=== PATIENT | female | born 1940 | race Caucasian/White ===

== ENCOUNTER 2017-10-12 16:28 | Inpatient (IN) | payer OTHER ==
[~2017-10-12] VITALS: Ht 162.6 cm; Wt 75.3 kg
[2017-10-12 18:10] LABS: Mean Corpuscular HGB 28.2 pg (26.0-34.0); Mean Corpuscular HGB Conc 31.2 g/dL (31.5-36.5); Mean Corpuscular Volume 90 fL (80-100); RDW Coefficient Variation 21.3 % (11.7-14.2); RDW Standard Deviation 70.3 fL (35.1-46.3); Red Blood Cell Count 1.56 M/mm3 (3.80-5.20); White Blood Cell Count 1.26 K/mm3 (4.00-11.30)
[2017-10-12 18:15] LABS: Hematocrit 14.1 % (33.0-51.0); Hemoglobin 4.4 g/dL (11.5-16.0); Platelet Count 13 K/mm3 (150-400)
[2017-10-12 18:23] LABS: CPK Creatine Kinase 79 U/L (26-193); Creatine Kinase MB 0.8 ng/mL (0.0-3.6); Lactate Dehydrogenase (Ld),Bld 319 U/L (100-240); Troponin I <0.015 ng/mL (0.000-0.040)
[2017-10-12 18:43] LABS: Uric Acid, Blood 41.8 mg/dL (2.6-6.0)
[2017-10-12 19:00] LABS: BASOPHILS PERCENT MAN 0 % (0-2); EOSINOPHILS PERCENT MAN 0 % (0-6); LYMPHOCYTES ABSOLUTE MAN 0.83 K/mm3 (0.84-5.20); LYMPHOCYTES PERCENT MAN 66 % (21-46); MONOCYTES ABSOLUTE MAN 0.03 K/mm3 (0.16-1.47); MONOCYTES PERCENT MAN 3 % (4-13); NEUTROPHILS ABSOLUTE MAN 0.39 K/mm3 (1.96-9.15); SEG NEUTROPHILS PERCENT MAN 31 % (41-73); TOTAL CELLS COUNTED 100
[2017-10-12 19:44] LABS: International Normalized Ratio 1.08; Prothrombin Time Results 11.3 Sec (9.7-11.5)
[2017-10-13 02:06] LABS: Bun/Creatinine Ratio 19.2 (12.0-20.0); Calcium, Blood 6.3 mg/dL (8.5-10.1); Creatinine, Blood 6.83 mg/dL (0.40-1.00); Potassium, Blood 5.9 mmol/L (3.5-5.5)
[2017-10-13 08:10] LABS: Chloride (POC) 103 mmol/L (98-108); Creatinine (POC) 8.1 mg/dL (0.6-1.0); Glucose (ISTAT POC) 107 mg/dL (70-99); Hematocrit (POC) < 15.0 % (36.0-46.0); Potassium (POC) 6.1 mmol/L (3.5-5.5); Sodium (POC) 132 mmol/L (135-148); Total CO2 (POC) 14 mmol/L (21-32)
== END 2017-10-13 01:25 | disposition short-term general hospital (02) | DRG 683 ==
LOC: ER 16:28 → PCU 20:29
PROVIDERS: Emergency Medicine; Hospitalist
PROC: 30233N1 Transfusion of Nonautologous Red Blood Cells into Peripheral Vein, Percutaneous Approach (ICD-10-PCS; principal; 2017-10-11)
DX: E88.3 Tumor lysis syndrome (principal); C91.10 Chronic lymphocytic leukemia of B-cell type not having achieved remission; Z66 Do not resuscitate; D63.0 Anemia in neoplastic disease; D70.1 Agranulocytosis secondary to cancer chemotherapy; E87.5 Hyperkalemia; E79.0 Hyperuricemia without signs of inflammatory arthritis and tophaceous disease
CPT/HCPCS: 36430; 51702; 80047; 80048; 82272; 82550; 82553; 83615; 84484; 84550; 85014; 85025; 85610; 85730; 86850; 86900; 86901; 86923; 93005; 93010; 96361; 96374; 96375; 96376; 99285; C9113; J0610; J1815; J1940; J2405; J3010; J7030; J7042; P9016

== ENCOUNTER 2020-11-14 10:13 | Emergency (ER) | payer OTHER ==
[~2020-11-14] VITALS: Ht 162.6 cm; Wt 61.2 kg
[2020-11-14 10:43] LABS: Hematocrit 24.5 % (33.0-51.0); Hemoglobin 7.3 g/dL (11.5-16.0); Mean Corpuscular HGB 28.2 pg (26.0-34.0); Mean Corpuscular HGB Conc 29.8 g/dL (31.5-36.5); Mean Corpuscular Volume 95 fL (80-100); Mean Platelet Volume 12.2 fL (9.1-12.4); NRBC ABSOLUTE 0.05 K/mm3 (0.00-0.02); Platelet Count 56 K/mm3 (150-400); RDW Coefficient Variation 18.7 % (11.7-14.2); RDW Standard Deviation 62.6 fL (35.1-46.3); Red Blood Cell Count 2.59 M/mm3 (3.80-5.20)
[2020-11-14 10:59] LABS: White Blood Cell Count 100.45 K/mm3 (4.00-11.30)
[2020-11-14 11:04] LABS: Albumin/Globulin Ratio 0.7 (0.8-1.8); Bilirubin, Total 1.2 mg/dL (0.1-1.0); Bun/Creatinine Ratio 18.5 (12.0-20.0); Calcium, Blood 8.3 mg/dL (8.5-10.1); Creatinine, Blood 1.24 mg/dL (0.40-1.00); Globulin, Blood 4.3 g/dL (2.2-4.0); Potassium, Blood 5.2 mmol/L (3.5-5.5); Total Protein, Blood 7.3 g/dL (6.4-8.2)
[2020-11-14 11:45] LABS: SARS-Cov-2 (COVID-19) PCR, MMC POSITIVE (NEGATIVE)
[2020-11-14 12:28] LABS: BASOPHILS PERCENT MAN 0 % (0-2); EOSINOPHILS PERCENT MAN 0 % (0-6); LYMPHOCYTES ABSOLUTE MAN 97.43 K/mm3 (0.84-5.20); LYMPHOCYTES PERCENT MAN 97 % (21-46); MONOCYTES PERCENT MAN 1 % (4-13); SEG NEUTROPHILS PERCENT MAN 2 % (41-73); TOTAL CELLS COUNTED 100
[2020-11-14] MEDS ORDERED: DEXA4 PO ×2 (12:33→16:38)
== END 2020-11-14 14:10 | disposition home or self-care (01) ==
LOC: ER 10:13
PROVIDERS: Emergency Medicine
DX: U07.1 COVID-19 (principal); D53.9 Nutritional anemia, unspecified; D69.6 Thrombocytopenia, unspecified; N28.9 Disorder of kidney and ureter, unspecified; Z85.6 Personal history of leukemia
CPT/HCPCS: 71045; 80053; 85025; 99284-25; J7030; U0004

== ENCOUNTER 2020-11-16 12:55 | Inpatient (IN) | payer OTHER ==
[~2020-11-16] VITALS: Ht 162.6 cm; Wt 59.7 kg
[~2020-11-16 12:55] MED LIST: DEXA4 PO
[2020-11-16 14:46] LABS: Hematocrit 22.9 % (33.0-51.0); Mean Corpuscular HGB 28.5 pg (26.0-34.0); Mean Corpuscular HGB Conc 30.6 g/dL (31.5-36.5); Mean Corpuscular Volume 93 fL (80-100); NRBC ABSOLUTE 0.03 K/mm3 (0.00-0.02); Platelet Count 55 K/mm3 (150-400); RDW Coefficient Variation 18.7 % (11.7-14.2); RDW Standard Deviation 61.8 fL (35.1-46.3); Red Blood Cell Count 2.46 M/mm3 (3.80-5.20)
[2020-11-16 15:17] LABS: Albumin, Blood 2.6 g/dL (3.4-5.0); Albumin/Globulin Ratio 0.6 (0.8-1.8); Bun/Creatinine Ratio 27.1 (12.0-20.0); Calcium, Blood 8.3 mg/dL (8.5-10.1); Creatinine, Blood 1.18 mg/dL (0.40-1.00); Globulin, Blood 4.2 g/dL (2.2-4.0); Potassium, Blood 4.8 mmol/L (3.5-5.5); Total Protein, Blood 6.8 g/dL (6.4-8.2)
[2020-11-16 15:46] LABS: BASOPHILS PERCENT MAN 0 % (0-2); EOSINOPHILS PERCENT MAN 0 % (0-6); LYMPHOCYTES ABSOLUTE MAN 101.55 K/mm3 (0.84-5.20); LYMPHOCYTES PERCENT MAN 97 % (21-46); MONOCYTES ABSOLUTE MAN 1.04 K/mm3 (0.16-1.47); MONOCYTES PERCENT MAN 1 % (4-13); NEUTROPHILS ABSOLUTE MAN 2.09 K/mm3 (1.96-9.15); SEG NEUTROPHILS PERCENT MAN 2 % (41-73); TOTAL CELLS COUNTED 100
[2020-11-16 18:51] LABS: International Normalized Ratio 1.1; Prothrombin Time Results 11.8 Sec (9.7-11.5)
[2020-11-17 04:58] LABS: BASOPHILS ABSOLUTE AUTO 0.04 K/mm3 (0.00-0.23); BASOPHILS PERCENT AUTO 0 % (0-2); EOSINOPHILS PERCENT AUTO 0 % (0-6); Mean Corpuscular HGB 28.8 pg (26.0-34.0); Mean Corpuscular HGB Conc 30.9 g/dL (31.5-36.5); Mean Corpuscular Volume 93 fL (80-100); RDW Standard Deviation 62.8 fL (35.1-46.3); Red Blood Cell Count 1.77 M/mm3 (3.80-5.20); White Blood Cell Count 31.99 K/mm3 (4.00-11.30)
[2020-11-17 05:02] LABS: IMMATURE GRAN ABSOLUTE AUTO 0.12 K/mm3 (0.00-0.10); IMMATURE GRAN PERCENT AUTO 0 % (0-1); LYMPHOCYTES ABSOLUTE AUTO 29.92 K/mm3 (0.84-5.20); LYMPHOCYTES PERCENT AUTO 94 % (21-46); MONOCYTES PERCENT AUTO 2 % (4-13); NEUTROPHILS ABSOLUTE AUTO 1.41 K/mm3 (1.96-9.15); NEUTROPHILS PERCENT AUTO 4 % (41-73)
[2020-11-17 05:04] LABS: Hematocrit 16.5 % (33.0-51.0); Hemoglobin 5.1 g/dL (11.5-16.0); Platelet Count 36 K/mm3 (150-400)
[2020-11-17 05:19] LABS: BAND PERCENT MAN 1 % (0-8); BASOPHILS PERCENT MAN 0 % (0-2); EOSINOPHILS PERCENT MAN 0 % (0-6); LYMPHOCYTES ABSOLUTE MAN 31.35 K/mm3 (0.84-5.20); LYMPHOCYTES PERCENT MAN 98 % (21-46); MONOCYTES PERCENT MAN 0 % (4-13); NEUTROPHILS ABSOLUTE MAN 0.63 K/mm3 (1.96-9.15); SEG NEUTROPHILS PERCENT MAN 1 % (41-73); TOTAL CELLS COUNTED 100
[2020-11-17 05:39] LABS: Calcium, Blood 8.1 mg/dL (8.5-10.1); Creatinine, Blood 1.25 mg/dL (0.40-1.00); Potassium, Blood 4.3 mmol/L (3.5-5.5)
--- NOTE | 2020-11-17 05:45 | NUR ---
PHYSICIAN COMMUNICATION CONTACTED BOOK CLEANER PHYSICIAN TO NOTIFY HIM THAT THE PATIENT HAD CRITICALLY LOW HEMEGLOBIN OF 5.[address] OF 16.5[address] DR DAVEY ORDERED ONE UNIT OF RED BLOOD CELLS. ALSO NOTIFIED HIM THAT HER PLATELET COUNT IS 36. NO ORDERS GIVEN FOR THIS.
--- NOTE | 2020-11-17 07:04 | NUR ---
SHIFT SUMMARY PATIENT ALERT AND ORIENTED. HAD NO COMPLAINTS OF PAIN OR SHORTNESS OF BREATH. SLEPT WELL OVERNIGHT AND HAD MINIMAL NEEDS. IV PATENT AND INFUSING. BED IN LOWEST POSITION WITH WHEELS LOCKED AND ALARM ON. CALL LIGHT WITHIN REACH. REPORT GIVEN TO ONCOMING RN.
--- NOTE | 2020-11-17 17:50 | NUR ---
PT AOX4 AND COOPERATIVE OF CARE. PT HAS BEEN TREATED FOR LOW GRADE FEVER AND IS A ONE PERSON ASSIST TO RESTROOM OR BEDSIDE COMMODE. PT HAS HAD DIRRHEA AND SOME INCONTENCE PULL UPS IN PLACE. 1 UNIT OF BLOOD ADMINISTERED TO DAY AND PT TOLERATED WELL. CALL LIGHT IS WITHIN REACH WILL CONTINUE TO MONITOR.
[2020-11-17 18:37] LABS: Hematocrit 22.9 % (33.0-51.0); Hemoglobin 7.2 g/dL (11.5-16.0)
--- NOTE | 2020-11-18 04:15 | NUR ---
SHIFT SUMMARY PATIENT HAD NO ACUTE CHANGES OBSERVED. AXOX 3 AND ONE ASSIST TO BSC. ON 4L O2 NC. VSS/AFEBRILE. DENIES PAIN, SOB, AND N/V. PIV REMAINS INTACT. TEMPERATURE REDUCED TO 97.3 FROM 100.3 ON DAY SHIFT. DROPLET PRECAUTIONS. CALL LIGHT IN REACH. BED IN LOWEST POSITION. WILL CONTINUE TO MONITOR UNTIL DAY SHIFT NURSE ASSUMES CARE.
[2020-11-18 05:25] LABS: Hematocrit 20.2 % (33.0-51.0); Hemoglobin 6.3 g/dL (11.5-16.0); Mean Corpuscular HGB 28.3 pg (26.0-34.0); Mean Corpuscular HGB Conc 31.2 g/dL (31.5-36.5); Mean Corpuscular Volume 91 fL (80-100); NRBC ABSOLUTE 0.03 K/mm3 (0.00-0.02); NRBC Auto 0.1 /100 WBC (0.0-0.2); RDW Standard Deviation 62.4 fL (35.1-46.3); Red Blood Cell Count 2.23 M/mm3 (3.80-5.20); White Blood Cell Count 31.47 K/mm3 (4.00-11.30)
[2020-11-18 05:41] LABS: Creatinine, Blood 1.1 mg/dL (0.40-1.00); Potassium, Blood 4.1 mmol/L (3.5-5.5)
[2020-11-18 06:11] LABS: Platelet Count 36 K/mm3 (150-400)
--- NOTE | 2020-11-18 18:23 | NUR ---
PT AOX4 AND COOPERATIVE OF CARE. PT HAS HAD MILD FEVER AND HAS BEEN TREATED PER EMAR. PT HAD DIARHEA STILL AT START OF SHIFT AND DR HECK NOTIFIED AND ADDED MEDICATION TO EMAR. PT CALLS APPROPRIATELY AND IS A STANDBY TO BEDSIDE COMMODE. PT VERY TIRED AND IS RESTING IN BED AT THIS TIME. CALL LIGHT IS WITHIN REACH WILL CONTINUE TO MONITOR.
--- NOTE | 2020-11-19 04:33 | NUR ---
SHIFT SUMMARY AOX4. SPO2 DROPS WHEN NC TAKEN OFF. FOUND NC OFF 2X & SPO2 @74%, DENIES SOB. PLACED NC & SPO2 INCREASED TO 88%, HAD PT PRONE & INCREASED O2 TO 5L, SPO2 @93%. HAS FREQUENT DRY NONPRODUCTIVE COUGH. LUNGS DIM IN BASES. REST OF VITALS STABLE. REPORTS 02/12 ACHY PAIN ALLOVER BODY & IN JOINTS, MEDICATED 1X c TYLENOL. DENIES N/V. NO DIARRHEA THIS SHIFT. IND TO BSC. CALL LIGHT IN REACH. PT ABLE TO MAKE NEEDS KNOWN. WILL MONITOR.
[2020-11-19 05:34] LABS: Hematocrit 25.9 % (33.0-51.0); Hemoglobin 8.2 g/dL (11.5-16.0); Mean Corpuscular HGB 28.9 pg (26.0-34.0); Mean Corpuscular HGB Conc 31.7 g/dL (31.5-36.5); Mean Corpuscular Volume 91 fL (80-100); NRBC ABSOLUTE 0.03 K/mm3 (0.00-0.02); NRBC Auto 0.1 /100 WBC (0.0-0.2); RDW Standard Deviation 62.3 fL (35.1-46.3); Red Blood Cell Count 2.84 M/mm3 (3.80-5.20); White Blood Cell Count 34.74 K/mm3 (4.00-11.30)
[2020-11-19 05:36] LABS: Platelet Count 50 K/mm3 (150-400)
[2020-11-19 05:54] LABS: Bun/Creatinine Ratio 38.7 (12.0-20.0); Calcium, Blood 8.4 mg/dL (8.5-10.1); Creatinine, Blood 1.06 mg/dL (0.40-1.00); Potassium, Blood 4.2 mmol/L (3.5-5.5)
--- NOTE | 2020-11-19 16:28 | NUR ---
PT AOX4 AND COOPERATIVE OF CARE. PT IS VERY MUCH IMPROVED FROM THE LAST TWO DAYS. PT STILL NEEDS TO USE BEDSIDE COMMODE,BUT IS FEELING STRONGER AND WAS ABLE TO EAT BETTER AND STATED SHE FELT BETTER. PT USES CALL LIGHT APPROPRIATELY. PT STEADIER ON HER FEET TODAY. O2 HAS BEEN STABLE AROUND 95% ON 4L. WILL CONTINUE TO MONITOR.
[2020-11-20 05:36] LABS: Hemoglobin 6.9 g/dL (11.5-16.0); Mean Corpuscular HGB 28.5 pg (26.0-34.0); Mean Corpuscular HGB Conc 31.4 g/dL (31.5-36.5); Mean Corpuscular Volume 91 fL (80-100); Mean Platelet Volume 12.2 fL (9.1-12.4); RDW Coefficient Variation 18.6 % (11.7-14.2); RDW Standard Deviation 61.1 fL (35.1-46.3); Red Blood Cell Count 2.42 M/mm3 (3.80-5.20)
--- NOTE | 2020-11-20 05:50 | NUR ---
SUMMARY: PT A/OX4, COOPERATIVE W/CARE AND CALLS APPROPRIATELY FOR ASSIST. SHE OCCASSIONALLY YELLS INTO HART, MOANS AND GROANS BUT DENIES PAIN AND CLAIMS "IT MAKES HER FEEL BETTER TO DO SO". SHE REMAINS DIAPHORETIC BUT AFEBRILE AND CONT'S TO HAVE DIARRHEA. PT IS CONTINENT TO [facility] W/SBA. SHE ADMITS TO IMPROVED BALANCE AND BEING "STEADIER ON FEET". SHE REMAINS ON 4L HUMIDIFIED O2 W/CONT BIOX INTACT AND SPO2 WNL, RESPS E/U. PT SL BWTN IV ABX AND WILL RECIEVE DOSE 4 OF REMDESIVIR TODAY. NO ACUTE CHANGES, VSS/AFEBRILE. WCTM/REPORT TO DAY RN.
[2020-11-20 06:04] LABS: Bun/Creatinine Ratio 41.9 (12.0-20.0); Calcium, Blood 8.2 mg/dL (8.5-10.1); Creatinine, Blood 0.96 mg/dL (0.40-1.00); Potassium, Blood 4.2 mmol/L (3.5-5.5)
[2020-11-20 06:15] LABS: Platelet Count 46 K/mm3 (150-400)
--- NOTE | 2020-11-20 06:50 | NUR ---
ATTEMPTED TO ALERT OF TRENDING DOWNWARD PLATELET NOW 46 W/HGB NOW 6.9. HE DIDN'T RETURN CALL PRIOR TO RN SHIFT REPORT SO DAY RN MADE AWARE AND TAMALE MACHINE FEEDER, JOYCE MALDONADO ALERTED WELL. WILL ENSURE DAY RN FOLLOWS UP.
--- NOTE | 2020-11-20 17:44 | NUR ---
PT HAS RESTED THIS SHIFT. O2 REQUIREMENTS HAVE REMAINED THE SAME AT 5 L. SHE IS INDEPENDENT IN THE ROOM AND AMBULATES TO THE RESTROOM NEEDED. SHE WAS ABLE TO GET IN SHOWER THIS SHIFT WITH STAFF PRESENT IN ROOM AND ASSISTING NEEDED. NO COMPLAINTS THIS TIME, CALL LIGHT WITHIN REACH.
--- NOTE | 2020-11-21 05:23 | NUR ---
SUMMARY: PT A/OX4, CALLS APPROPRIATELY AND SPECIFIES NEEDS. SHE REMAINS ON 5L O2 W/SPO2 WNL AND RESPS E/U, MILD SOB NOTED W/EXERTION. SHE'S INDEPENDENT TO BSC AND DIDN'T HAVE ANY EPISODES DIARRHEA THIS SHIFT. PT SL AFTER IV ABX. NO PAIN, FEVERS OR COMPLAINTS AND SLEPT MAJORITY OF NOCTE. VSS/AFEBRILE, NO ACUTE CHANGES. WCTM AND REPORT TO DAY RN.
[2020-11-21 06:02] LABS: Hemoglobin 7.6 g/dL (11.5-16.0); Mean Corpuscular HGB 28.3 pg (26.0-34.0); Mean Corpuscular HGB Conc 30.4 g/dL (31.5-36.5); Mean Corpuscular Volume 93 fL (80-100); Platelet Count 52 K/mm3 (150-400); RDW Coefficient Variation 18.6 % (11.7-14.2); RDW Standard Deviation 62.3 fL (35.1-46.3); Red Blood Cell Count 2.69 M/mm3 (3.80-5.20)
[2020-11-21 06:23] LABS: Anion Gap 6 mmol/L (6-16); Blood Urea Nitrogen 39 mg/dL (8-24); Bun/Creatinine Ratio 43.1 (12.0-20.0); CO2, Blood 25 mmol/L (21-32); Calcium, Blood 8.2 mg/dL (8.5-10.1); Chloride, Blood 105 mmol/L (98-108); Creatinine, Blood 0.91 mg/dL (0.40-1.00); Glomerular Filtration Rate >60 (60-); Glucose, Blood 97 mg/dL (70-99); Potassium, Blood 3.9 mmol/L (3.5-5.5); Sodium, Blood 136 mmol/L (136-145)
[2020-11-21 07:11] LABS: BASOPHILS PERCENT MAN 0 % (0-2); EOSINOPHILS PERCENT MAN 0 % (0-6); LYMPHOCYTES ABSOLUTE MAN 40.93 K/mm3 (0.84-5.20); MONOCYTES ABSOLUTE MAN 0.42 K/mm3 (0.16-1.47); MONOCYTES PERCENT MAN 1 % (4-13); NEUTROPHILS ABSOLUTE MAN 0.84 K/mm3 (1.96-9.15); SEG NEUTROPHILS PERCENT MAN 2 % (41-73); TOTAL CELLS COUNTED 100
[2020-11-21 07:16] LABS: LYMPHOCYTES PERCENT MAN 97 % (21-46)
--- NOTE | 2020-11-21 17:39 | NUR ---
SHIFT SUMMARY PATIENT ALERT AND ORIENTATED X4. PATIENT CALLS APPROPRIATELY FOR SPECIFIED NEEDS. PATIENT REMAINS ON 5L 02. PATIENT SATTING IN THE LOW TO MID 90S ON 5L. PATIENT DOES NOT COMPLAIN OF PAIN, NAUSEA, FEVER. PATIENT IS INDEPENDENT IN ROOM. PATIENT STATES NO EPISODES OF DIARRHEA AND BOWEL MOVEMENTS ARE FORMING. PATIENT COOPERATIVE WITH CARE. VITAL SIGNS REVIEWED. NO ACUTE CHANGES DURING SHIFT.
--- NOTE | 2020-11-21 18:26 | NUR ---
AMBULANCE ATTENDANT DOC REVIEW THIS RN ASSESSED THE PT. THIS RN REVIEWED & AGREES WITH AMBULANCE ATTENDANT'S ASSESSMENT AND DOCUMENTATION FOR THE SHIFT.
[2020-11-22 09:18] LABS: Hematocrit 27.1 % (33.0-51.0); Hemoglobin 8.3 g/dL (11.5-16.0); Mean Corpuscular HGB 28.7 pg (26.0-34.0); Mean Corpuscular HGB Conc 30.6 g/dL (31.5-36.5); Mean Corpuscular Volume 94 fL (80-100); Mean Platelet Volume 11.4 fL (9.1-12.4); NRBC ABSOLUTE 0.04 K/mm3 (0.00-0.02); NRBC Auto 0.1 /100 WBC (0.0-0.2); Platelet Count 74 K/mm3 (150-400); RDW Coefficient Variation 18.2 % (11.7-14.2); RDW Standard Deviation 61.1 fL (35.1-46.3); Red Blood Cell Count 2.89 M/mm3 (3.80-5.20)
[2020-11-22 09:38] LABS: Alanine Aminotransfer (ALT/SGP 54 U/L (12-78); Albumin, Blood 2.4 g/dL (3.4-5.0); Albumin/Globulin Ratio 0.5 (0.8-1.8); Alk Phos 48 U/L (50-136); Anion Gap 7 mmol/L (6-16); Aspartate Aminotrans (AST/SGOT 41 U/L (12-37); Bilirubin, Total 0.7 mg/dL (0.1-1.0); Blood Urea Nitrogen 30 mg/dL (8-24); Bun/Creatinine Ratio 35.8 (12.0-20.0); CO2, Blood 25 mmol/L (21-32); Calcium, Blood 8.3 mg/dL (8.5-10.1); Chloride, Blood 103 mmol/L (98-108); Creatinine, Blood 0.84 mg/dL (0.40-1.00); Globulin, Blood 4.7 g/dL (2.2-4.0); Glomerular Filtration Rate >60 (60-); Glucose, Blood 88 mg/dL (70-99); Potassium, Blood 3.8 mmol/L (3.5-5.5); Sodium, Blood 135 mmol/L (136-145); Total Protein, Blood 7.1 g/dL (6.4-8.2)
[2020-11-22 10:18] LABS: BASOPHILS PERCENT MAN 0 % (0-2); EOSINOPHILS ABSOLUTE MAN 0.48 K/mm3 (0.00-0.68); EOSINOPHILS PERCENT MAN 1 % (0-6); LYMPHOCYTES ABSOLUTE MAN 46.94 K/mm3 (0.84-5.20); LYMPHOCYTES PERCENT MAN 97 % (21-46); MONOCYTES PERCENT MAN 0 % (4-13); NEUTROPHILS ABSOLUTE MAN 0.96 K/mm3 (1.96-9.15); SEG NEUTROPHILS PERCENT MAN 2 % (41-73); TOTAL CELLS COUNTED 100
--- NOTE | 2020-11-22 17:49 | NUR ---
SHIFT SUMMARY PT IS A/0X4. PATIENT CALLS APPROPRIATELY AND STATES NEEDS. PATIENT IS INDEPENDENT IN ROOM. PATIENT IS STILL SATTING IN THE LOW 90S ON 5L 02. PATIENT HAD MODERATE BOWEL MOVEMENT IN COMMODE, NO DIARREA DURING THIS SHIFT. PATIENT HAS HAD IV REMOVED. NO COMPLAINTS OF PAIN, FEVER. NO ACUTE CHANGES DURING SHIFT. VITAL SIGNS REVIEWED. CALL LIGHT IN REACH.
--- NOTE | 2020-11-22 18:16 | NUR ---
DATA PROCESSING MECHANIC DOC REVIEW THIS RN ASSESSED THE PT. THIS RN REVIEWED & AGREES WITH THE STUDENT NURSE'S DOCUMENTATION FOR THIS SHIFT.
--- NOTE | 2020-11-22 22:53 | NUR ---
PT HAD BEEN INCREASED TO 11 L O2 VIA OXYMIZER AROUND 2100. PT DENIED SOB BUT WAS DESATTING IN THE LOW 80'S. DENIES DIZZINIESS. RT CAME AND EVALUATED PT. CURRENTLY ASLEEP SATTING AT 99% WITH CONTINOUS OX IN PLACE. CALL LIGHT WITHIN REACH.
--- NOTE | 2020-11-23 01:46 | NUR ---
HIGH FLOW 2300 PT GOT UP TO USE BSC AND DESATTED TO THE LOW TO MID 80'S. SAT HAS NOT IMPROVED DESIPITE BEING BACK IN BED FOR SOME TIME. PT WILL NOT TOLERATE BEING PRONE. PLACED ON HIGH FLOW AND INCREASED TO 15L SATTING IN THE LOW 90'S. WILL CONTINUE TO MONITOR.
--- NOTE | 2020-11-23 05:18 | NUR ---
SOLDER LEVELER PRINTED CIRCUIT BOARDS SUMMARY PT A/O X4. PT HAS INCREASED FROM 5L O2 VIA NC AT BEGINNING OF SHIFT TO BEING ON 15L VIA HIGH FLOW. PT USES BSC AND DESATS TO THE MID 80'S AFTER GETTING UP. IT TAKES ABOUT 10 MIN FOR SATS TO COME BACK UP. RT MADE KNOWN AND RECOMMENDED TO PUT A NON-REBREATHER MASK OVER THE HIGH FLOW O2 WHILE PT IS UP IN ORDER TO HELP SATS INCREASE QUICKER. PT IS IN BED AND CURRENTLY SATTING IN THE LOW TO MID 90'S. PT DENIED SOB OVERNIGHT EVEN WITH O2 DESATS. DENIES PAIN, NAUSEA, DIZZINIESS. PT HAS BEEN ANNOYED AND THINKS OXYGEN EQUIPMENT IS MALFUNCTIONING. PT STATES SHE COULD NOT TOLERATE BEING PRONE. CALL LIGHT WITHIN REACH, WILL CONTINUE TO MONITOR.
--- NOTE | 2020-11-23 05:39 | NUR ---
NOC SHIFT 11/21/20 LATE ENTRY PT A/O X4. INDEPENDENT TO BCS. CONTINUES TO BE ON 5L O2 VIA NC SATTING IN THE MID 'S. DENIES SOB, PAIN, NAUSEA. SLEPT WELL. NO ACUTE CHANGES. CALL LIGHT WITHIN REACH. USES CALL LIGHT APPROPRIATELY.
[2020-11-23 08:53] LABS: Hematocrit 24.6 % (33.0-51.0); Hemoglobin 7.4 g/dL (11.5-16.0); Mean Corpuscular HGB 28.5 pg (26.0-34.0); Mean Corpuscular HGB Conc 30.1 g/dL (31.5-36.5); Mean Corpuscular Volume 95 fL (80-100); Mean Platelet Volume 11.3 fL (9.1-12.4); NRBC ABSOLUTE 0.03 K/mm3 (0.00-0.02); NRBC Auto 0.1 /100 WBC (0.0-0.2); Platelet Count 65 K/mm3 (150-400); RDW Coefficient Variation 18.2 % (11.7-14.2); RDW Standard Deviation 61.6 fL (35.1-46.3); White Blood Cell Count 41.93 K/mm3 (4.00-11.30)
[2020-11-23 08:59] LABS: Alanine Aminotransfer (ALT/SGP 48 U/L (12-78); Albumin, Blood 2.3 g/dL (3.4-5.0); Albumin/Globulin Ratio 0.5 (0.8-1.8); Alk Phos 46 U/L (50-136); Anion Gap 5 mmol/L (6-16); Aspartate Aminotrans (AST/SGOT 38 U/L (12-37); Bilirubin, Total 0.7 mg/dL (0.1-1.0); Blood Urea Nitrogen 24 mg/dL (8-24); Bun/Creatinine Ratio 28.6 (12.0-20.0); CO2, Blood 27 mmol/L (21-32); Calcium, Blood 8.3 mg/dL (8.5-10.1); Chloride, Blood 104 mmol/L (98-108); Creatinine, Blood 0.84 mg/dL (0.40-1.00); Globulin, Blood 4.6 g/dL (2.2-4.0); Glomerular Filtration Rate >60 (60-); Glucose, Blood 88 mg/dL (70-99); Potassium, Blood 3.7 mmol/L (3.5-5.5); Sodium, Blood 136 mmol/L (136-145); Total Protein, Blood 6.9 g/dL (6.4-8.2)
[2020-11-23 09:31] LABS: BASOPHILS PERCENT MAN 0 % (0-2); EOSINOPHILS PERCENT MAN 0 % (0-6); LYMPHOCYTES ABSOLUTE MAN 40.67 K/mm3 (0.84-5.20); MONOCYTES ABSOLUTE MAN 0.41 K/mm3 (0.16-1.47); MONOCYTES PERCENT MAN 1 % (4-13); NEUTROPHILS ABSOLUTE MAN 0.83 K/mm3 (1.96-9.15); SEG NEUTROPHILS PERCENT MAN 2 % (41-73); TOTAL CELLS COUNTED 100
[2020-11-23 09:34] LABS: LYMPHOCYTES PERCENT MAN 97 % (21-46)
--- NOTE | 2020-11-23 19:22 | NUR ---
SHIFT SUMMARY PT IS A&O AND CALLS APPROPRIATELY. PT O2 SATURATIONS RANGES FROM 89 TO 97% DEPENDING ON PT LEVEL OF EXERTION. WHEN PT GETS OUT OF BED TO USE BSC 15L IN A NON-REBREATHER USED CONCURENTLY TO MAINTIN PT SATURATIONS. PT DENIED P/N/V DURING SHIFT. UPHOLSTERY RESTORER STATED THAT PT BECAME AGITATED WHEN HOSPICE INFORMATION WAS ON HER MEAL TRAY. PT CURENTLY RESTING AND HOPING TO GET SOME SLEEP TONIGHT. CALL LIGHT W/IN REACH.
--- NOTE | 2020-11-24 02:42 | NUR ---
Patient continuous 02 sat monitor began consistantly alarming for saturations in the mid 80's. She stated she had been sitting up in bed scratching her leg and that she didn't feel SOB. Resp therapy consulted, and it was recommended that we increase her high flow O2 back to 15 LPM which was done. Cynthia is satting in mid 90's at this time.
--- NOTE | 2020-11-24 03:43 | NUR ---
Cynthia has slept well overnight. No complaints of pain or discomfort. Still quite sob with very minimal exertion. Respiratory care decreased her high flow as she was satting high 90's most of the night, However, 02 needs increased once she fell asleep and oxygen was again turned up to 15 liters. Large BM tonight on the commode.
[2020-11-24 05:22] LABS: BASOPHILS ABSOLUTE AUTO 0.03 K/mm3 (0.00-0.23); BASOPHILS PERCENT AUTO 0 % (0-2); EOSINOPHILS PERCENT AUTO 0 % (0-6); Hematocrit 19.2 % (33.0-51.0); Mean Corpuscular HGB 28.8 pg (26.0-34.0); Mean Corpuscular HGB Conc 30.7 g/dL (31.5-36.5); Mean Corpuscular Volume 94 fL (80-100); Mean Platelet Volume 10.8 fL (9.1-12.4); NRBC ABSOLUTE 0.02 K/mm3 (0.00-0.02); NRBC Auto 0.1 /100 WBC (0.0-0.2); RDW Standard Deviation 60.7 fL (35.1-46.3); Red Blood Cell Count 2.05 M/mm3 (3.80-5.20); White Blood Cell Count 28.31 K/mm3 (4.00-11.30)
[2020-11-24 05:34] LABS: IMMATURE GRAN ABSOLUTE AUTO 0.03 K/mm3 (0.00-0.10); IMMATURE GRAN PERCENT AUTO 0 % (0-1); LYMPHOCYTES ABSOLUTE AUTO 26.91 K/mm3 (0.84-5.20); LYMPHOCYTES PERCENT AUTO 95 % (21-46); MONOCYTES ABSOLUTE AUTO 0.67 K/mm3 (0.16-1.47); MONOCYTES PERCENT AUTO 2 % (4-13); NEUTROPHILS ABSOLUTE AUTO 0.67 K/mm3 (1.96-9.15); NEUTROPHILS PERCENT AUTO 2 % (41-73)
[2020-11-24 05:35] LABS: Hemoglobin 5.9 g/dL (11.5-16.0); Platelet Count 47 K/mm3 (150-400)
[2020-11-24 05:42] LABS: Alanine Aminotransfer (ALT/SGP 80 U/L (12-78); Albumin, Blood 1.9 g/dL (3.4-5.0); Albumin/Globulin Ratio 0.5 (0.8-1.8); Alk Phos 43 U/L (50-136); Anion Gap 3 mmol/L (6-16); Aspartate Aminotrans (AST/SGOT 87 U/L (12-37); Bilirubin, Total 0.5 mg/dL (0.1-1.0); Blood Urea Nitrogen 26 mg/dL (8-24); Bun/Creatinine Ratio 33.4 (12.0-20.0); CO2, Blood 29 mmol/L (21-32); Calcium, Blood 8.1 mg/dL (8.5-10.1); Chloride, Blood 104 mmol/L (98-108); Creatinine, Blood 0.78 mg/dL (0.40-1.00); Globulin, Blood 4.1 g/dL (2.2-4.0); Glomerular Filtration Rate >60 (60-); Glucose, Blood 96 mg/dL (70-99); Sodium, Blood 136 mmol/L (136-145)
[2020-11-24 11:16] LABS: Percent Saturation 22.5 % (15.0-50.0)
[2020-11-24 13:53] LABS: Hematocrit 24.4 % (33.0-51.0); Hemoglobin 7.6 g/dL (11.5-16.0); Mean Corpuscular HGB 28.9 pg (26.0-34.0); Mean Corpuscular HGB Conc 31.1 g/dL (31.5-36.5); Mean Corpuscular Volume 93 fL (80-100); Mean Platelet Volume 11.3 fL (9.1-12.4); NRBC ABSOLUTE 0.04 K/mm3 (0.00-0.02); NRBC Auto 0.1 /100 WBC (0.0-0.2); Platelet Count 58 K/mm3 (150-400); RDW Coefficient Variation 17.6 % (11.7-14.2); RDW Standard Deviation 59.1 fL (35.1-46.3); Red Blood Cell Count 2.63 M/mm3 (3.80-5.20); White Blood Cell Count 32.83 K/mm3 (4.00-11.30)
[2020-11-24 14:26] LABS: BASOPHILS PERCENT MAN 0 % (0-2); EOSINOPHILS PERCENT MAN 0 % (0-6); LYMPHOCYTES ABSOLUTE MAN 31.51 K/mm3 (0.84-5.20); LYMPHOCYTES PERCENT MAN 96 % (21-46); MONOCYTES PERCENT MAN 0 % (4-13); NEUTROPHILS ABSOLUTE MAN 1.31 K/mm3 (1.96-9.15); SEG NEUTROPHILS PERCENT MAN 4 % (41-73); TOTAL CELLS COUNTED 100
--- NOTE | 2020-11-24 18:18 | NUR ---
SHIFT SUMMARY PT A&O AND ABLE TO MAKE NEEDS KNOWN. IN MORING HELPED PT TO BSC, PT SATURATIONS DROP IN TO HIGH 70'S LOW 80'S AND TOOK OVER 10MINUTES TO RECOVER. PT REMAINED ASYMPTOMATIC DURING THAT TIME. NEW IV WAS STARTED BY ARUNA MAYO AND BLOOD TRANSFUSION ADMINISTERED. IN AFTERNOON PT O2 SATURATIONS REMAINED IN HIGH 90'S AND TITRATED NC DOWN TO 13L, PT LEVELS REMAIN STABLE. PT REQUESTED VISIT FROM PASTORAL STAFF, THEY ARE NOT HERE IN AFTERNOON WILL PASS REQUEST ON TO [employer]. PT CURENTLY EATING DINNER, CALL LIGHT W/IN REACH.
[2020-11-25 02:46] LABS: Stool Occult Blood Guaiac 1 Pos (Neg)
--- NOTE | 2020-11-25 04:20 | NUR ---
PIECE GOODS PACKER SUMMARY This patient had no complaints of discomfort overnight. 02 decreased to 11 liters via high flow at rest with saturations in low to mid 90's. Patient remains alert and oriented X4, pleasant and cooperative with care. Stool was sent to lab for guiac.
--- NOTE | 2020-11-25 13:39 | NUR ---
OCEAN SPRAY C/O DRY NOSE D/T OXYGEN SUPPLEMENT VIA HF NC @ 10-[address] SERVIN TO GIVEN OCEAN SPRAY Q1H PRN FOR DRY NOSE. EMAR UPDATED.
--- NOTE | 2020-11-25 16:21 | NUR ---
Shift Summary A/Ox3, pleasant and cooperative. Up to bedside commode with 1p SBA. Titrated O2 down, currently on 9L O2 via HF NC. Sats > 95% via biox. Denies shortness of breath. Appetite is good eating at least half of all meals and also asking for snacks in between meals. Patient refuses to accept positive stool occult result and asking for a repeat. Dr. Sarabia is aware. 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 Ordered Sevier Idalia for dry nose. Humidifier attached to NC to aid in moisturizing nasal passage. Denies pain, nausea, vomiting. Lung sounds are clear. WCTM.
[2020-11-26 05:19] LABS: Hematocrit 22.4 % (33.0-51.0); Mean Corpuscular HGB 28.9 pg (26.0-34.0); Mean Corpuscular HGB Conc 31.3 g/dL (31.5-36.5); Mean Corpuscular Volume 93 fL (80-100); Mean Platelet Volume 11.3 fL (9.1-12.4); NRBC ABSOLUTE 0.02 K/mm3 (0.00-0.02); NRBC Auto 0.1 /100 WBC (0.0-0.2); Platelet Count 52 K/mm3 (150-400); RDW Coefficient Variation 17.4 % (11.7-14.2); RDW Standard Deviation 57.7 fL (35.1-46.3); Red Blood Cell Count 2.42 M/mm3 (3.80-5.20); White Blood Cell Count 30.43 K/mm3 (4.00-11.30)
[2020-11-26 05:49] LABS: Alanine Aminotransfer (ALT/SGP 233 U/L (12-78); Albumin/Globulin Ratio 0.5 (0.8-1.8); Alk Phos 79 U/L (50-136); Anion Gap 6 mmol/L (6-16); Aspartate Aminotrans (AST/SGOT 248 U/L (12-37); Bilirubin, Total 0.6 mg/dL (0.1-1.0); Blood Urea Nitrogen 23 mg/dL (8-24); Bun/Creatinine Ratio 29.2 (12.0-20.0); CO2, Blood 26 mmol/L (21-32); Calcium, Blood 8.4 mg/dL (8.5-10.1); Chloride, Blood 102 mmol/L (98-108); Creatinine, Blood 0.79 mg/dL (0.40-1.00); Ferritin, Serum 1110 ng/mL (8-252); Globulin, Blood 4.4 g/dL (2.2-4.0); Glomerular Filtration Rate >60 (60-); Glucose, Blood 83 mg/dL (70-99); Iron Serum 34 ug/dL (50-170); Percent Saturation 19.2 % (15.0-50.0); Potassium, Blood 4.1 mmol/L (3.5-5.5); Sodium, Blood 134 mmol/L (136-145); Total Iron Binding Capacity 177 ug/dL (250-450); Total Protein, Blood 6.4 g/dL (6.4-8.2)
--- NOTE | 2020-11-26 07:36 | NUR ---
MECHANICAL DESIGN ENGINEER FACILITIES SUMMARY Cynthia had another night of improvement in her 02 saturation. She is currently down to 7L 02 via high flow from 9L at the beginning of the shift. No complaints of discomfort and she was able to get oob to bedside commode independently without requiring the non rebreather mask. Each time she would get up, it would drop her Sats down to mid 80's and take approximately 10 minutes to recover and be consistantly in the 90-95% range. Hoping to increase her endurance to make it to the "Actual bathroom" by mid week.
--- NOTE | 2020-11-26 16:50 | NUR ---
assumed care of pt following receiving report from previous RN Jc. Pt a/o x 4, pleasant/cooperative, sitting up in bed watching TV. Denies pain
--- NOTE | 2020-11-27 04:57 | NUR ---
SHIFT SUMMARY ASSUMED CARE OF PT AT 1900. PT IS A/OX4. HEART SOUNDS REGULAR, LUNG SOUNDS HAVE CRACKLES AT THE BASES. P IS ON 6L NC. SATURATIONS REMAIN ABOVE 90%. PT IS INDEPENDENT TO BSC. PT HAS NO NEW COMPLAINTS. CALL LIGHT IN REACH, BED IN LOWEST POSITON.
--- NOTE | 2020-11-27 13:46 | NUR ---
Patient is lying bed and alert. Patient tells me that she was hoping a line construction superintendent would visit her today. She then asks if I would say a prayer for her. I gladly provide prayer. The patient then talks about how randy is at work to harm God's people but settles on the thought that she knows that the Bible tells us that we will be victorious in the end. I will continue to remain available to patient and family.
--- NOTE | 2020-11-27 19:31 | NUR ---
SHIFT SUMMARY: NO ACUTE CHANGES TO REPORT THIS SHIFT. PT A&O; CALM AND COOPERATIVE WITH CARE; INDEPENDENT IN ROOM. MEDICATED FOR SHOULDER PAIN PER EMAR. O2 @ 7L HIGH FLOW; WIRELESS OXIMETRY IN PLACE. STEROIDS CONTINUING. REPORT GIVEN TO ONCOMING RN.
[2020-11-28 05:58] LABS: Hematocrit 23.6 % (33.0-51.0); Hemoglobin 7.3 g/dL (11.5-16.0); Mean Corpuscular HGB Conc 30.9 g/dL (31.5-36.5); Mean Corpuscular Volume 94 fL (80-100); NRBC ABSOLUTE 0.03 K/mm3 (0.00-0.02); NRBC Auto 0.1 /100 WBC (0.0-0.2); RDW Coefficient Variation 17.3 % (11.7-14.2); RDW Standard Deviation 58.5 fL (35.1-46.3); Red Blood Cell Count 2.52 M/mm3 (3.80-5.20); White Blood Cell Count 24.01 K/mm3 (4.00-11.30)
[2020-11-28 06:06] LABS: Platelet Count 50 K/mm3 (150-400)
--- NOTE | 2020-11-28 06:06 | NUR ---
SUPERVISOR DRY CLEANING SUMMARY PT A/O X4. SLEPT WELL OVERNIGHT. PT STARTED THE SHIFT ON 8-9L AND HAS BEEN TITRATED DOWN TO 5L VIA HIGH FLOW SATTING IN THE HIGH 90'S. PT DENIES SOB. SLIGHTLY ELEVATED TEMP THIS MORNING. DENIES CHILLS. BLANKET TAKEN OFF, COOL WASHCLOTH APPLIED TO FOREHEAD. PT STATES SHE FEELS MUCH BETTER THIS AM AND "READY TO WALK OUT OF HERE". DENIES PAIN, DIZZNIESS. INDEPENDENT TO BSC. USES CALL LIGHT APPROPRIATELY.
[2020-11-28 06:17] LABS: Albumin, Blood 2.1 g/dL (3.4-5.0); Albumin/Globulin Ratio 0.4 (0.8-1.8); Bilirubin, Direct 0.2 mg/dL (0.0-0.3); Bilirubin, Indirect 0.5 mg/dL (0.1-0.7); Bilirubin, Total 0.7 mg/dL (0.1-1.0); Globulin, Blood 4.7 g/dL (2.2-4.0); Total Protein, Blood 6.8 g/dL (6.4-8.2)
--- NOTE | 2020-11-28 18:04 | NUR ---
PT IS A/O X4, CONTINENT, INDEPENDENT IN ROOM, USES BSC, AND CALLS APPROPRIATELY. PT HAD A SLIGHTLY ELEVATED TEMP THIS AM BUT SHORTLY AFTER MEDICATION THE FEVER BROKE. THE PT DENIES SOB, BUT DOES COUGH WITH DEEP INSPIRATION. THE PT WAS WEANED OFF 5L OF HIGH FLOW O2 DOWN TO 1L THIS PM, SATS ARE IN THE HIGH 90'S. THE PLAN IS TO D/C THE PT HOME TOMORROW.
--- NOTE | 2020-11-29 04:34 | NUR ---
SHIFT SUMMARY PT SLEPT WELL THIS EVENING. O2 REQUIREMENTS RANGING FROM 1-3 L. PT MOSTLY REMAINED ON 1.5 L THROUGHOUT THE NIGHT. PT'S TEMPERATURE 99.7 AT START OF SHIFT BUT DECREASED TO 98.9 THIS AM WITHOUT MEDICATION. NO COMPLAINTS OF PAIN OR DISCOMFORT FROM PT. NO ACUTE CHANGES THIS SHIFT. VITAL SIGNS STABLE. PT HOPEFUL TO DISCHARGE HOME TODAY.
[2020-11-29 05:28] LABS: Hematocrit 21.4 % (33.0-51.0); Hemoglobin 6.7 g/dL (11.5-16.0); Mean Corpuscular HGB Conc 31.3 g/dL (31.5-36.5); Mean Corpuscular Volume 93 fL (80-100); Mean Platelet Volume 11.4 fL (9.1-12.4); NRBC ABSOLUTE 0.02 K/mm3 (0.00-0.02); NRBC Auto 0.1 /100 WBC (0.0-0.2); RDW Coefficient Variation 17.2 % (11.7-14.2); RDW Standard Deviation 57.6 fL (35.1-46.3); Red Blood Cell Count 2.31 M/mm3 (3.80-5.20); White Blood Cell Count 24.29 K/mm3 (4.00-11.30)
[2020-11-29 05:30] LABS: Platelet Count 45 K/mm3 (150-400)
--- NOTE | 2020-11-29 05:40 | NUR ---
HGB THIS AM WAS 6.7. PLT ALSO CONTINUED TO BE CRITICALLY LOW AT 45. NOTFIED DR. BYERS. NEW ORDERS TO TRANSFUSE 1 UNIT OF PRBC'S.
[2020-11-29 06:02] LABS: Alanine Aminotransfer (ALT/SGP 174 U/L (12-78); Albumin, Blood 1.9 g/dL (3.4-5.0); Albumin/Globulin Ratio 0.4 (0.8-1.8); Alk Phos 82 U/L (50-136); Anion Gap 7 mmol/L (6-16); Aspartate Aminotrans (AST/SGOT 88 U/L (12-37); Bilirubin, Total 0.6 mg/dL (0.1-1.0); Blood Urea Nitrogen 28 mg/dL (8-24); Bun/Creatinine Ratio 34.8 (12.0-20.0); CO2, Blood 25 mmol/L (21-32); Calcium, Blood 8.5 mg/dL (8.5-10.1); Chloride, Blood 100 mmol/L (98-108); Globulin, Blood 4.6 g/dL (2.2-4.0); Glomerular Filtration Rate >60 (60-); Glucose, Blood 99 mg/dL (70-99); Potassium, Blood 4.3 mmol/L (3.5-5.5); Sodium, Blood 132 mmol/L (136-145); Total Protein, Blood 6.5 g/dL (6.4-8.2)
--- NOTE | 2020-11-29 16:51 | NUR ---
PATIENT A/OX4, UP INDEPENDENTLY IN ROOM. FEVER THIS AFTERNOON OF 102.5, MEDICATED WITH TYLENOL AND IS NOW WNL. 1 UNIT OF BLOOD GIVEN THIS AM FOR HGB 6.7. 2LO2 VIA NC THROUGHOUT THE SHIFT, LUNGS CLEAR. CONTINUES TO HAVE A COUGH WITH SCANT AMOUNT OF CLEAR SPUTUM. 20G IV TO R FA WNL AND SL. PLANS TO DC TO HOME WHEN STABLE.
[2020-11-30 04:55] LABS: BASOPHILS ABSOLUTE AUTO 0.05 K/mm3 (0.00-0.23); BASOPHILS PERCENT AUTO 0 % (0-2); EOSINOPHILS PERCENT AUTO 0 % (0-6); Hemoglobin 7.8 g/dL (11.5-16.0); Mean Corpuscular HGB 28.3 pg (26.0-34.0); Mean Corpuscular HGB Conc 31.2 g/dL (31.5-36.5); Mean Corpuscular Volume 91 fL (80-100); Mean Platelet Volume 10.8 fL (9.1-12.4); NRBC ABSOLUTE 0.02 K/mm3 (0.00-0.02); NRBC Auto 0.1 /100 WBC (0.0-0.2); RDW Coefficient Variation 17.9 % (11.7-14.2); RDW Standard Deviation 58.8 fL (35.1-46.3); Red Blood Cell Count 2.76 M/mm3 (3.80-5.20); White Blood Cell Count 27.57 K/mm3 (4.00-11.30)
--- NOTE | 2020-11-30 05:00 | NUR ---
SHIFT SUMMARY PT HAD AN UNEVENTFUL NIGHT. SLEPT OFF AND ON THROUGHOUT THE NIGHT. DENIES ANY SOB. PT ON 2-3 L VIA NC WITH O2 SATS IN THE LOW 90'S. VITAL SIGNS STABLE. PT REMAINED AFEBRILE. PT HOPEFUL TO DISCHARGE HOME TODAY.
[2020-11-30 05:01] LABS: IMMATURE GRAN ABSOLUTE AUTO 0.12 K/mm3 (0.00-0.10); IMMATURE GRAN PERCENT AUTO 0 % (0-1); LYMPHOCYTES ABSOLUTE AUTO 25.18 K/mm3 (0.84-5.20); LYMPHOCYTES PERCENT AUTO 91 % (21-46); MONOCYTES ABSOLUTE AUTO 0.75 K/mm3 (0.16-1.47); MONOCYTES PERCENT AUTO 3 % (4-13); NEUTROPHILS ABSOLUTE AUTO 1.47 K/mm3 (1.96-9.15); NEUTROPHILS PERCENT AUTO 5 % (41-73); Platelet Count 41 K/mm3 (150-400)
[2020-11-30 05:07] LABS: Albumin, Blood 1.9 g/dL (3.4-5.0); Anion Gap 6 mmol/L (6-16); Blood Urea Nitrogen 25 mg/dL (8-24); Bun/Creatinine Ratio 30.8 (12.0-20.0); CO2, Blood 26 mmol/L (21-32); Calcium, Blood 8.7 mg/dL (8.5-10.1); Chloride, Blood 99 mmol/L (98-108); Creatinine, Blood 0.81 mg/dL (0.40-1.00); Glomerular Filtration Rate >60 (60-); Glucose, Blood 88 mg/dL (70-99); Potassium, Blood 4.1 mmol/L (3.5-5.5); Sodium, Blood 131 mmol/L (136-145)
--- NOTE | 2020-11-30 17:10 | NUR ---
SHIFT SUMMARY PT A/O X4; PLEASANT AND COOPERATIVE WITH CARE. NO ACUTE CHANGES THIS SHIFT. BEEING SLEEPING ON AND OFF ALL SHIFT. CURRENTLY SATTING IN THE LOW TO MID 90'S WHILE ON 3.5 LITERS O2. WILL POSSIBLY DC TOMORROW AFTER HAVING REPEAT LABS IN THE AM. VSS.
--- NOTE | 2020-12-01 03:45 | NUR ---
SHIFT SUMMARY PATIENT HAD NO ACUTE CHANGES OBSERVED. AXOX 4 AND INDEPENDENT IN ROOM. ON 3.5L O2 NC STATING LOW TO MID 90'S IN CONTINUOUS PULSE OXIMETRY, DENIES PAIN, SOB, AND N/V. [place]. PIV REMAINS INTACT. DROPLET PRECAUTIONS. CALL LIGHT IN REACH. BED IN LOWEST POSITION. WILL CONTINUE TO MONITOR UNTIL DAY SHIFT NURSE ASSUMES CARE.
[2020-12-01 04:54] LABS: BASOPHILS ABSOLUTE AUTO 0.06 K/mm3 (0.00-0.23); BASOPHILS PERCENT AUTO 0 % (0-2); EOSINOPHILS PERCENT AUTO 0 % (0-6); Hematocrit 25.1 % (33.0-51.0); Hemoglobin 7.8 g/dL (11.5-16.0); Mean Corpuscular HGB 28.8 pg (26.0-34.0); Mean Corpuscular HGB Conc 31.1 g/dL (31.5-36.5); Mean Corpuscular Volume 93 fL (80-100); NRBC ABSOLUTE 0.02 K/mm3 (0.00-0.02); NRBC Auto 0.1 /100 WBC (0.0-0.2); RDW Coefficient Variation 17.4 % (11.7-14.2); RDW Standard Deviation 57.2 fL (35.1-46.3); Red Blood Cell Count 2.71 M/mm3 (3.80-5.20); White Blood Cell Count 27.14 K/mm3 (4.00-11.30)
[2020-12-01 04:59] LABS: IMMATURE GRAN ABSOLUTE AUTO 0.12 K/mm3 (0.00-0.10); IMMATURE GRAN PERCENT AUTO 0 % (0-1); LYMPHOCYTES ABSOLUTE AUTO 24.91 K/mm3 (0.84-5.20); LYMPHOCYTES PERCENT AUTO 92 % (21-46); MONOCYTES ABSOLUTE AUTO 0.69 K/mm3 (0.16-1.47); MONOCYTES PERCENT AUTO 3 % (4-13); NEUTROPHILS ABSOLUTE AUTO 1.36 K/mm3 (1.96-9.15); NEUTROPHILS PERCENT AUTO 5 % (41-73); Platelet Count 40 K/mm3 (150-400)
[2020-12-01 05:15] LABS: Albumin, Blood 1.8 g/dL (3.4-5.0); Anion Gap 3 mmol/L (6-16); Blood Urea Nitrogen 21 mg/dL (8-24); Bun/Creatinine Ratio 23.8 (12.0-20.0); CO2, Blood 29 mmol/L (21-32); Calcium, Blood 8.5 mg/dL (8.5-10.1); Chloride, Blood 98 mmol/L (98-108); Creatinine, Blood 0.88 mg/dL (0.40-1.00); Glomerular Filtration Rate >60 (60-); Glucose, Blood 97 mg/dL (70-99); Phosphorus, Blood 3.1 mg/dL (2.5-4.9); Potassium, Blood 4.2 mmol/L (3.5-5.5); Sodium, Blood 130 mmol/L (136-145)
--- NOTE | 2020-12-01 16:26 | NUR ---
SHIFT SUMMARY NO ACUTE CHANGES TO PRESENT THIS SHIFT. PT UP INDEPENDENTLY AROUND RM AND TO BTHRM. DR MAZA IN TO SEE PT THIS AM. PT DECLINING TO GO HOME. REPORTS THAT SHE LIVES ALONE AND UNSURE IF SHE CAN MANAGE BY HERSELF YET. PT TO HAVE HOME O2 EVAL PRIOR TO D/C. NO C/O PAIN OR SOB. REMAINS ON 2.5L O2, WITH SATS IN MID 90"S. CALL LT IN REACH. ABLE TO MAKE NEEDS KNOWN.
--- NOTE | 2020-12-02 03:17 | NUR ---
SHIFT SUMMARY PATIENT REPORTED HOOD X ONE AND TYLENOL 650 MG GIVEN PER EMAR. STATING INTO THE LOW 80'S ON 2.5 L O2 AND NOW 4.5L O2 NC AND STATING LOW TO MID 90'S. ON CONTINUOUS PULSE OXIMETRY. AXOX 4 AND INDEPENDENT IN ROOM. VSS/AFEBRILE. DENIES SOB AND N/V. DROPLET PRECAUTIONS. CALL LIGHT IN REACH. BED IN LOWEST POSITION. WILL CONTINUE TO MONITOR UNTIL DAY SHIFT NURSE ASSUMES CARE.
[2020-12-02 04:43] LABS: BASOPHILS ABSOLUTE AUTO 0.03 K/mm3 (0.00-0.23); BASOPHILS PERCENT AUTO 0 % (0-2); EOSINOPHILS PERCENT AUTO 0 % (0-6); Hematocrit 23.6 % (33.0-51.0); Hemoglobin 7.3 g/dL (11.5-16.0); Mean Corpuscular HGB 28.5 pg (26.0-34.0); Mean Corpuscular HGB Conc 30.9 g/dL (31.5-36.5); Mean Corpuscular Volume 92 fL (80-100); RDW Coefficient Variation 17.2 % (11.7-14.2); RDW Standard Deviation 56.6 fL (35.1-46.3); Red Blood Cell Count 2.56 M/mm3 (3.80-5.20); White Blood Cell Count 21.18 K/mm3 (4.00-11.30)
[2020-12-02 04:53] LABS: IMMATURE GRAN ABSOLUTE AUTO 0.06 K/mm3 (0.00-0.10); IMMATURE GRAN PERCENT AUTO 0 % (0-1); LYMPHOCYTES ABSOLUTE AUTO 19.48 K/mm3 (0.84-5.20); LYMPHOCYTES PERCENT AUTO 92 % (21-46); MONOCYTES ABSOLUTE AUTO 0.57 K/mm3 (0.16-1.47); MONOCYTES PERCENT AUTO 3 % (4-13); NEUTROPHILS ABSOLUTE AUTO 1.04 K/mm3 (1.96-9.15); NEUTROPHILS PERCENT AUTO 5 % (41-73); Platelet Count 40 K/mm3 (150-400)
[2020-12-02 05:09] LABS: Albumin, Blood 1.8 g/dL (3.4-5.0); Anion Gap 6 mmol/L (6-16); Blood Urea Nitrogen 23 mg/dL (8-24); Bun/Creatinine Ratio 26.3 (12.0-20.0); CO2, Blood 26 mmol/L (21-32); Calcium, Blood 8.4 mg/dL (8.5-10.1); Chloride, Blood 99 mmol/L (98-108); Creatinine, Blood 0.87 mg/dL (0.40-1.00); Glomerular Filtration Rate >60 (60-); Glucose, Blood 119 mg/dL (70-99); Phosphorus, Blood 3.4 mg/dL (2.5-4.9); Potassium, Blood 3.6 mmol/L (3.5-5.5); Sodium, Blood 131 mmol/L (136-145)
--- NOTE | 2020-12-02 07:30 | NUR ---
ASSUMED CARE: PT RESTING IN ROOM, DOOR CLOSED. NO ACUTE NEEDS OR DISTRESS AT THIS TIME.
--- NOTE | 2020-12-02 17:15 | NUR ---
SHIFT SUMMARY: PT CURRENTLY USING 3L O2 VIA NC. PLAN IS FOR HOME DC LIKELY THURSDAY WITH HOME HEALTH, WHEN HOME HELATH IS AVAILABLE TO COME ASSIST SAME DAY. PT IS INDEPENDENT IN ROOM. DENIES ANY NEEDS OR CONCERNS AT THIS TIME.
--- NOTE | 2020-12-03 03:48 | NUR ---
SHIFT SUMMARY PATIENT HAD NO ACUTE CHANGES OBSERVED. AXOX 4 AND INDEPENDENT IN ROOM. ON 5L O2 NC STATING 88%-97; DROPPING DOWN TO 84% ON 3.5-4L. ON CONTINUOUS PULSE OXIMETRY. DENIES PAIN, SOB, AND N/V. VSS/AFEBRILE. DROPLET PRECAUTIONS. PIV REMAINS INTACT. CALL LIGHT IN REACH. BED IN LOWEST POSITION. WILL CONTINUE TO MONITOR UNTIL DAY SHIFT NURSE ASSUMES CARE.
[2020-12-03 04:44] LABS: Hemoglobin 6.9 g/dL (11.5-16.0); Mean Corpuscular HGB 28.5 pg (26.0-34.0); Mean Corpuscular HGB Conc 31.4 g/dL (31.5-36.5); Mean Corpuscular Volume 91 fL (80-100); RDW Standard Deviation 55.9 fL (35.1-46.3); Red Blood Cell Count 2.42 M/mm3 (3.80-5.20); White Blood Cell Count 25.98 K/mm3 (4.00-11.30)
[2020-12-03 04:49] LABS: Mean Platelet Volume 12.7 fL (9.1-12.4); Platelet Count 45 K/mm3 (150-400)
[2020-12-03 05:26] LABS: BASOPHILS PERCENT MAN 0 % (0-2); EOSINOPHILS ABSOLUTE MAN 0.25 K/mm3 (0.00-0.68); EOSINOPHILS PERCENT MAN 1 % (0-6); LYMPHOCYTES ABSOLUTE MAN 24.68 K/mm3 (0.84-5.20); LYMPHOCYTES PERCENT MAN 95 % (21-46); MONOCYTES ABSOLUTE MAN 0.25 K/mm3 (0.16-1.47); MONOCYTES PERCENT MAN 1 % (4-13); NEUTROPHILS ABSOLUTE MAN 0.77 K/mm3 (1.96-9.15); SEG NEUTROPHILS PERCENT MAN 3 % (41-73); TOTAL CELLS COUNTED 100
--- NOTE | 2020-12-03 08:57 | NUR ---
PT OXYGEN STATUS PT O2 DROPPED TO 82% ON 6 L 02 THIS AM. PT WAS LAYING IN BED. THIS RN BUMPED 02 TO 7 L AND SATS WERE 84-87%. PT INSTRUCTED TO PRONE AND INITIALLY REFUSED. THIS RN EXPLAINED REASONING AND PT EVENTUALLY PRONED FOR ABOUT 1-2 MINUTES AND SATS WERE 94-95%. PT REMAINS ON 7 L 02. THIS RN WILL CONTINUE TO MONITOR PT STATUS.
--- NOTE | 2020-12-03 17:06 | NUR ---
SHIFT SUMMARY PT IS AOX4. PT DENIES PAIN, N/V, SOB. PT IS ONE PERSON ASSIST TO SBA IN ROOM. PT EXHIBITED EPISODE OF DESATURATION THIS AM AND WAS BUMPED TO 11 L 02 AND PRONED-SEE NOTE. PT IS NOW BACK AT 6 L 02 VIA NC AND HUMIDIFIER. PT RECEIVED ONE UNIT PRBC PER ORDERS. PT HAD A CHEST XRAY THIS VIDAL. PT'S APPETITE IS GOOD. PLAN IS FOR POTENTIAL DC TOMORROW ON HOSPICE IF PT IS AMENABLE TO THIS. PT DID NOT HAVE VISITORS PER COVID PROTOCOL. ENHANCED ISOLATION PRECUATIONS MAINTAINED T/O SHIFT. PT IS IN ROOM, CALL LIGHT IN REACH, BED IN LOW POSITION.
--- NOTE | 2020-12-04 02:26 | NUR ---
80 year old Female [place] with CLL Anemia & covid 19 pneumonia continues to require high flow oxygen for keep sats greater than 90%. 87 to 89 % on 8 l high flow. PT unwilling to prone or lay on side, discussed with RT n ext step would be AIRVO or bipap. But PT maintains sat 93% on 11 l high flow humidified. PT is irritable does not like to have lights or blankets on. Had pallative care consult yesterday to discuss dc plan possible dc soon on Hospice? Has CLL & She has required several transfusions since admission to treat HBG less than 8. Having critically low platelets were 45 yesterday up from 40 the day prior & up from 36 on 11/17/20. Has Sister Margarita who should be involved in DC plan. Up with SBA to bathroom. PT says bowels moving 3 x daily denies diarrhea. Irritated by Bioxx alarms. Continues in enhanced isolation for covid 19. [address] Henning to discuss increased oxygen demands from 7 l high flow to 11 l high flow & RT recommendations for AIRVO if PT required more than 11l high flow. +
[2020-12-04 05:38] LABS: BASOPHILS ABSOLUTE AUTO 0.05 K/mm3 (0.00-0.23); BASOPHILS PERCENT AUTO 0 % (0-2); EOSINOPHILS PERCENT AUTO 0 % (0-6); Hematocrit 24.4 % (33.0-51.0); Hemoglobin 7.6 g/dL (11.5-16.0); Mean Corpuscular HGB 28.6 pg (26.0-34.0); Mean Corpuscular HGB Conc 31.1 g/dL (31.5-36.5); Mean Corpuscular Volume 92 fL (80-100); Mean Platelet Volume 12.6 fL (9.1-12.4); NRBC ABSOLUTE 0.02 K/mm3 (0.00-0.02); NRBC Auto 0.1 /100 WBC (0.0-0.2); RDW Coefficient Variation 17.1 % (11.7-14.2); RDW Standard Deviation 56.6 fL (35.1-46.3); Red Blood Cell Count 2.66 M/mm3 (3.80-5.20); White Blood Cell Count 29.08 K/mm3 (4.00-11.30)
[2020-12-04 05:43] LABS: IMMATURE GRAN ABSOLUTE AUTO 0.04 K/mm3 (0.00-0.10); IMMATURE GRAN PERCENT AUTO 0 % (0-1); LYMPHOCYTES ABSOLUTE AUTO 26.67 K/mm3 (0.84-5.20); LYMPHOCYTES PERCENT AUTO 92 % (21-46); MONOCYTES ABSOLUTE AUTO 0.96 K/mm3 (0.16-1.47); MONOCYTES PERCENT AUTO 3 % (4-13); NEUTROPHILS ABSOLUTE AUTO 1.36 K/mm3 (1.96-9.15); NEUTROPHILS PERCENT AUTO 5 % (41-73); Platelet Count 50 K/mm3 (150-400)
--- NOTE | 2020-12-04 06:54 | NUR ---
PT continues to need 11 l high flow oxygen to keep sats greater than 90%. She has pallative care consult ordered.
--- NOTE | 2020-12-04 14:06 | NUR ---
Pt on covid isolation. Pt stating she wants to go home. She is very fearful she is dying from covid and angry. Pt wavering hon home health and hospice. We slowly and carefully discussed a safe dischareg plan. Pt though home health would be with her most the time and she would have rehab care. Advised that insurance does not pay for caregiver hours. pt is but not service connected. She is trying to get service connected status. Advised will see what benefits available. Pt wants todie at home and is anxious angry and fearful. Offered strategy of speaking with her oncology team to help with a plan. Called her oncolgist and they believe she would benefit more from hospice care due to the risk for increased symptoms and high risk for readmission. Pt called friends and family to come stay with her. advised pt of what her doctor reccomended. gave her choices on weather to go with home health or hospice. she chose hospice. Understanding now is that she is wavering. Will revisit patient and attempt to help her work out her needs and feelings.Will try again to get her the level of help she needs.
--- NOTE | 2020-12-04 15:54 | NUR ---
PATIENT CONTINUES ON AIRBORNE ISOLATION FOR PNEUMONIA R/T COVID. PATIENT IS ON 12L O2 NC AND ON CONT BIOX. PATIENT IS UP INDEPENDENTLY IN ROOM. SHE BECOMES EASILY IRRITABLE AND PREFERS TO BE LEFT ALONE. VITALS HAVE BEEN STABLE. PLAN AT THIS POINT IS FOR PATIENT TO D/C HOME WITH HOSPICE TOMORROW. CALL LIGHT WITHIN REACH.
--- NOTE | 2020-12-04 19:43 | NUR ---
recieved report on [facility] PT with CLL and covid 19 pneumonia on 10 l high flow oxygen sat 95% per [employer] monitoroutside room . PT & Sister involved in DC plan to dc home on Hospice tomorrow with [facility] services. Continues in enhanced droplet contact isolation for covid 19 pneumonia.
[2020-12-05 05:29] LABS: BASOPHILS ABSOLUTE AUTO 0.08 K/mm3 (0.00-0.23); BASOPHILS PERCENT AUTO 0 % (0-2); EOSINOPHILS PERCENT AUTO 0 % (0-6); Hematocrit 25.6 % (33.0-51.0); Hemoglobin 8.1 g/dL (11.5-16.0); Mean Corpuscular HGB 28.7 pg (26.0-34.0); Mean Corpuscular HGB Conc 31.6 g/dL (31.5-36.5); Mean Corpuscular Volume 91 fL (80-100); Platelet Count 56 K/mm3 (150-400); RDW Coefficient Variation 16.5 % (11.7-14.2); RDW Standard Deviation 53.9 fL (35.1-46.3); Red Blood Cell Count 2.82 M/mm3 (3.80-5.20)
[2020-12-05 05:38] LABS: IMMATURE GRAN PERCENT AUTO 0 % (0-1); LYMPHOCYTES ABSOLUTE AUTO 33.59 K/mm3 (0.84-5.20); LYMPHOCYTES PERCENT AUTO 92 % (21-46); MONOCYTES ABSOLUTE AUTO 1.18 K/mm3 (0.16-1.47); MONOCYTES PERCENT AUTO 3 % (4-13); NEUTROPHILS ABSOLUTE AUTO 1.75 K/mm3 (1.96-9.15); NEUTROPHILS PERCENT AUTO 5 % (41-73)
--- NOTE | 2020-12-05 07:30 | NUR ---
ASSUMED CARE: PT RESTING IN BED ON 10L. NO ACUTE NEEDS AT THIS TIME.
--- NOTE | 2020-12-05 08:25 | NUR ---
RT AT BEDSIDE AT THIS TIME. PT ON 11L NC SATTING HIGH 80S TO LOW 90S. DR MAZA AWARE THAT ARRANGEMENTS MADE FOR DC AT 1030. VISHAL ALMENDAREZ WORKING ON MEDS FOR DC AND STATES RIDE TIME CHANGED TO 11. NO ACUTE NEEDS AT THIS TIME.
[2020-12-05] MEDS ORDERED: DEXA6 PO (10:04)
[2020-12-05] MEDS ORDERED: AZIT500 PO (10:05)
[2020-12-05] MEDS ORDERED: Acetaminophen325 M1 PO (10:05)
[2020-12-05] MEDS ORDERED: BISA10S PR (10:06)
[2020-12-05] MEDS ORDERED: GUAI600T33 PO (10:06)
[2020-12-05] MEDS ORDERED: MELATONIN5 M1 PO (10:06)
[2020-12-05] MEDS ORDERED: VISBIOME 112.51 EACH PO (10:07)
[2020-12-05] MEDS ORDERED: THERA-D2000 UNIT PO (10:08)
[2020-12-05] MEDS ORDERED: ALBU90OI INH (10:08)
[2020-12-05] MEDS ORDERED: CEPH500 PO (10:09)
--- NOTE | 2020-12-05 11:28 | NUR ---
DISCHARGE: PT'S IV DC'D WNL. PT DISCHARGED ON 12L O2 AND TRANSFERRED VIA WC BY HEALTHCARE PROJECT MANAGER WITH ASSISTANCE BY FIELD TAX AUDITOR. PT DENIED QUESTIONS OR CONCERNS. HOSPICE AWARE OF PT COMING HOME.
== END 2020-12-05 11:15 | disposition hospice, home (50) | DRG 871 ==
LOC: ER 12:55 → MEDS 17:38 → ENPENDDIS 11-19 12:54 → MEDS 12-04 19:49
PROVIDERS: Emergency Medicine; Family Medicine; Internal Medicine; ADMIT Hospitalist
PROC: 8E0ZXY6 Isolation (ICD-10-PCS; principal; 2020-11-16)
PROC: XW033E5 Introduction of Remdesivir Anti-infective into Peripheral Vein, Percutaneous Approach, New Technology Group 5 (ICD-10-PCS; 2020-11-16)
PROC: 3E0D73Z Introduction of Anti-inflammatory into Mouth and Pharynx, Via Natural or Artificial Opening (ICD-10-PCS; 2020-11-16)
PROC: 30233N1 Transfusion of Nonautologous Red Blood Cells into Peripheral Vein, Percutaneous Approach (ICD-10-PCS; 2020-11-16)
DX: A41.89 Other specified sepsis (principal); J96.01 Acute respiratory failure with hypoxia; U07.1 COVID-19; J12.82 Pneumonia due to coronavirus disease 2019; J15.9 Unspecified bacterial pneumonia; C91.10 Chronic lymphocytic leukemia of B-cell type not having achieved remission; E87.1 Hypo-osmolality and hyponatremia; E46 Unspecified protein-calorie malnutrition; D63.0 Anemia in neoplastic disease; Z66 Do not resuscitate; R65.20 Severe sepsis without septic shock; D69.59 Other secondary thrombocytopenia; N18.30 Chronic kidney disease, stage 3 unspecified; Z98.42 Cataract extraction status, left eye; Z98.41 Cataract extraction status, right eye; Z87.891 Personal history of nicotine dependence; Z88.8 Allergy status to other drugs, medicaments and biological substances; Z79.899 Other long term (current) drug therapy; Z68.22 Body mass index [BMI] 22.0-22.9, adult
CPT/HCPCS: 36415; 36430; 71045; 80048; 80053; 80069; 80076; 82272; 82728; 83010; 83540; 83550; 83605; 83615; 84145; 85014; 85018; 85025; 85027; 85379; 85610; 85651; 85730; 86850; 86900; 86901; 86923; 87040; 94760; 94761; 94762; 96374; 99285-25; A9270; J0456; J0696; J1650; J1885; J7030; J7050; P9016

== ENCOUNTER 2022-03-21 16:51 | Inpatient (IN) | payer OTHER ==
[~2022-03-21] VITALS: Ht 162.6 cm; Wt 59.6 kg
[~2022-03-21 16:51] MED LIST changes: +ALBU90OI INH; +AZIT500 PO; +Acetaminophen325 M1 PO; +BISA10S PR; +CEPH500 PO; +DEXA6 PO; +GUAI600T33 PO; +MELATONIN5 M1 PO; +THERA-D2000 UNIT PO; +VISBIOME 112.51 EACH PO
[2022-03-21] MEDS ORDERED: AMLO5 PO (18:44)
[2022-03-21] MEDS ORDERED: HYDRA50 PO (18:45)
[2022-03-21 19:01] LABS: Hematocrit 29.9 % (33.0-51.0); Hemoglobin 9.2 g/dL (11.5-16.0); Mean Corpuscular HGB 28.1 pg (26.0-34.0); Mean Corpuscular HGB Conc 30.8 g/dL (31.5-36.5); Mean Corpuscular Volume 91 fL (80-100); NRBC ABSOLUTE 0.05 K/mm3 (0.00-0.02); Platelet Count 61 K/mm3 (150-400); RDW Coefficient Variation 18.3 % (11.7-14.2); RDW Standard Deviation 59.2 fL (35.1-46.3); Red Blood Cell Count 3.27 M/mm3 (3.80-5.20)
[2022-03-21 19:07] LABS: White Blood Cell Count 126.78 K/mm3 (4.00-11.30)
[2022-03-21 19:16] LABS: Albumin, Blood 2.9 g/dL (3.4-5.0); Albumin/Globulin Ratio 0.6 (0.8-1.8); Bilirubin, Total 1.1 mg/dL (0.1-1.0); Bun/Creatinine Ratio 32.8 (12.0-20.0); Calcium, Blood 8.6 mg/dL (8.5-10.1); Creatinine, Blood 1.34 mg/dL (0.40-1.00); Globulin, Blood 4.6 g/dL (2.2-4.0); Magnesium, Blood 2.1 mg/dL (1.6-2.4); Total Protein, Blood 7.5 g/dL (6.4-8.2)
[2022-03-21 19:40] LABS: BASOPHILS PERCENT MAN 0 % (0-2); EOSINOPHILS PERCENT MAN 0 % (0-6); LYMPHOCYTES % ATYPICAL MANUAL 5 % (0-0); LYMPHOCYTES ABSOLUTE MAN 119.17 K/mm3 (0.84-5.20); LYMPHOCYTES PERCENT MAN 89 % (21-46); MONOCYTES PERCENT MAN 3 % (4-13); SEG NEUTROPHILS PERCENT MAN 3 % (41-73); TOTAL CELLS COUNTED 100
[2022-03-21 20:32] LABS: Influenza A, PCR NEGATIVE (NEGATIVE); Influenza B, PCR NEGATIVE (NEGATIVE); Resp Syncytial Virus, PCR NEGATIVE (NEGATIVE); SARS-Cov-2 (COVID-19) PCR, MMC NEGATIVE (NEGATIVE)
[2022-03-21 20:40] LABS: Source, Urine Clean Catch
[2022-03-21 20:43] LABS: Bilirubin, Urine Neg (Neg); Blood, Urine 5+ (Neg); Glucose Qualitative, Urine Neg (Neg); Ketones, Urine Neg (Neg); Leukocyte Esterase, Urine 1+ (Neg); Nitrite, Urine Neg (Neg); Protein, Urine 4+ (Neg); Specific Gravity, Urine 1.015 (1.003-1.022); Urobilinogen, Urine 1+ (Normal)
[2022-03-21 20:49] LABS: Appearance, Urine Hazy (Clear); Color, Urine Yellow (P-Yellow)
[2022-03-21 20:52] LABS: Bacteria Many /hpf; Hyaline Casts 0-2 /lpf (0-2); Squamous Epithelial Cells Mod /hpf (Few); Transitional Epithelial Cells Rare /hpf (0-Rare)
[2022-03-22 00:34] LABS: Base Excess Venous -6.6 mmol/L; Bicarbonate Venous 19.2 mmol/L (24.0-30.0); PCO2 Venous 37.6 mmHg (38-42); PO2 Venous 48.7 mmHg (38-42); pH Blood Venous 7.32 (7.34-7.37)
[2022-03-22 04:19] LABS: Hematocrit 23.7 % (33.0-51.0); Hemoglobin 7.2 g/dL (11.5-16.0); Mean Corpuscular HGB 28.3 pg (26.0-34.0); Mean Corpuscular HGB Conc 30.4 g/dL (31.5-36.5); Mean Corpuscular Volume 93 fL (80-100); NRBC ABSOLUTE 0.02 K/mm3 (0.00-0.02); RDW Coefficient Variation 18.5 % (11.7-14.2); RDW Standard Deviation 62.5 fL (35.1-46.3); Red Blood Cell Count 2.54 M/mm3 (3.80-5.20)
[2022-03-22 04:25] LABS: Platelet Count 29 K/mm3 (150-400); White Blood Cell Count 56.97 K/mm3 (4.00-11.30)
[2022-03-22 04:48] LABS: Albumin, Blood 2.2 g/dL (3.4-5.0); Albumin/Globulin Ratio 0.5 (0.8-1.8); Bilirubin, Total 0.8 mg/dL (0.1-1.0); Calcium, Blood 7.9 mg/dL (8.5-10.1); Creatinine, Blood 1.15 mg/dL (0.40-1.00); Globulin, Blood 4.1 g/dL (2.2-4.0); Potassium, Blood 3.9 mmol/L (3.5-5.5); Total Protein, Blood 6.3 g/dL (6.4-8.2)
[2022-03-22 04:56] LABS: BASOPHILS PERCENT MAN 0 % (0-2); EOSINOPHILS PERCENT MAN 0 % (0-6); LYMPHOCYTES % ATYPICAL MANUAL 3 % (0-0); LYMPHOCYTES ABSOLUTE MAN 55.26 K/mm3 (0.84-5.20); LYMPHOCYTES PERCENT MAN 94 % (21-46); MONOCYTES ABSOLUTE MAN 1.13 K/mm3 (0.16-1.47); MONOCYTES PERCENT MAN 2 % (4-13); NEUTROPHILS ABSOLUTE MAN 0.56 K/mm3 (1.96-9.15); SEG NEUTROPHILS PERCENT MAN 1 % (41-73); TOTAL CELLS COUNTED 100
--- NOTE | 2022-03-22 05:49 | NUR ---
ARRIVAL TO PCU/SHIFT SUMMARY PT ARRIVED TO PCU 14 AT APPROXIMATELY 2300. PT WAS SLID OVER FROM [facility] TO HOSPITAL BED BY 4 CLINICAL STAFF MEMBERS. PT ORIENTED TO ROOM AND HOW TO USE CALL LIGHT. RT AT BEDSIDE, SET UP CPAP AND PLACED IT ON PT. PT A&Ox4, CALLS AND COMMUNICATES NEEDS APPROPRIATELY. BP SOFT WITH SBP IN 90's, NOTIFIED DR. DAVEY PRIOR TO 0000 NOE SIFUENTES MD WITH ORDERS TO HOLD. SINUS TACH, 100-110's. SpO2> 92% ON CPAP SET TO 45% FiO2, RR ELEVATED IN THE 30's, LUNG SOUNDS CLEAR IN APEXES, COARSE CRACKLES IN BASES. PT STATED SOB IMPROVING SINCE BEING PLACED ON CPAP. DENIES CP/PRESSURE. NO ACUTE CHANGES SINCE ARRIVAL TO PCU 14. PT BP IMPROVED WITH SBP IN 120-130's. RR IMPROVED WITH RR NOW IN 20's. PT HAS BEEN ABLE TO REST COMFORTABLY WITH THE HELP OF THE CPAP. PT TOLERATED TRANSFERING TO [facility] WITH SBA, SpO2 REMAINED >92%. WILL CONTINUE TO MONITOR AND PROVIDE CARE UNTIL REPORT TO DAY SHIFT RN.
--- NOTE | 2022-03-22 16:39 | NUR ---
PT REPORTS "LABORED" BREATHING T/O THE DAY THAT SEEMS TO WAX AND WANE. SHE WAS ABLE TO TOLERATE 6L NASAL CANNULA THIS AFTERNOON FOR A FEW HOURS AND WAS ABLE TO EAT LUNCH WITHOUT ISSUES. PT WITH CONTINUED FEVER, PT REPORTS THAT DUE TO HER CLL SHE OFTEN "RUNS HOT" AND WAS RELUCTANT TAKE TYLENOL FOR TEMPERATURE OF 100.0, WHEN FEVER CLIMBED TO 102.0 PT DID THEN AGREE TO TAKE TYLENOL FOR FEVER AND RETURN TO CPAP, WHICH IS ALSO IMPROVED TACHYCARDIA AND ANXIETY FOR PATIENT. PT HAS BEEN UP TO BSC NUMEROUS TIMES THIS SHIFT, PT DID REPORT TO PCT THAT SHE NO LONGER PLANS TO GET UP TO BSC SHE NOW PLANS TO USE HER ATTENDS FOR TOILETING WHICH WAS NOT ENCOURAGED, PT CONTINUES TO GET UP TO BSC. PT A/O X4, ABLE TO MAKE NEEDS KNOWN, USES CALL LIGHT APPROPRIATELY. SHE REMAINS ON CPAP AT THIS TIME
[2022-03-23 04:20] LABS: Hematocrit 22.9 % (33.0-51.0); Hemoglobin 7.4 g/dL (11.5-16.0); Mean Corpuscular HGB 29.1 pg (26.0-34.0); Mean Corpuscular HGB Conc 32.3 g/dL (31.5-36.5); Mean Corpuscular Volume 90 fL (80-100); RDW Coefficient Variation 18.3 % (11.7-14.2); RDW Standard Deviation 60.6 fL (35.1-46.3); Red Blood Cell Count 2.54 M/mm3 (3.80-5.20); White Blood Cell Count 22.32 K/mm3 (4.00-11.30)
[2022-03-23 04:35] LABS: Platelet Count 33 K/mm3 (150-400)
[2022-03-23 04:57] LABS: Albumin, Blood 2.2 g/dL (3.4-5.0); Albumin/Globulin Ratio 0.5 (0.8-1.8); Bilirubin, Total 0.6 mg/dL (0.1-1.0); Bun/Creatinine Ratio 40.5 (12.0-20.0); Calcium, Blood 8.4 mg/dL (8.5-10.1); Creatinine, Blood 1.21 mg/dL (0.40-1.00); Globulin, Blood 4.3 g/dL (2.2-4.0); Potassium, Blood 3.7 mmol/L (3.5-5.5); Total Protein, Blood 6.5 g/dL (6.4-8.2)
[2022-03-23 05:55] LABS: BASOPHILS PERCENT MAN 0 % (0-2); EOSINOPHILS PERCENT MAN 0 % (0-6); LYMPHOCYTES PERCENT MAN 94 % (21-46); MONOCYTES ABSOLUTE MAN 0.22 K/mm3 (0.16-1.47); MONOCYTES PERCENT MAN 1 % (4-13); NEUTROPHILS ABSOLUTE MAN 1.11 K/mm3 (1.96-9.15); SEG NEUTROPHILS PERCENT MAN 5 % (41-73); TOTAL CELLS COUNTED 200
[2022-03-23 05:56] LABS: LYMPHOCYTES % ATYPICAL MANUAL 1 % (0-0)
--- NOTE | 2022-03-23 06:09 | NUR ---
SHIFT SUMMARY: PATIENT DENIES CHEST PAIN, REPORTS BASELINE TEMP OF 99.0-100.1*, AND BP WNL. PATIENT REPORTS SOME SOB WITH EXERTION, SATS >90% ON CPAP 8L/70% FIO2. MEDICATED PER EMAR. PATIENT RESTLESS THROUGHOUT THE NIGHT. MAKES NEEDS KNOWN. BED LOW WITH CALL LIGHT IN REACH. WILL CONTINUE TO MONITOR AND REPORT TO ONCOMING RN.
--- NOTE | 2022-03-23 08:00 | NUR ---
PT ALERT, ATTEMPTING TO EXIT BED, VERY ANXIOUS STS SHE NEEDS TO BE "UP". PT NOTED TO BE FEBRILE SHE IS TREATED WITH TYLENOL FOR FEVER, TREATED WITH ATIVAN FOR ANXIET. SHE CONTINUES TO REFUSE AMLODIPINE. PT PLACED ON NASAL CANNULA FOR MEDICATION ADMINISTRATION WHICH WAS TOLERATED WELL BUT PT VERY QUICKLY FATIGUED AND IS PLACED BACK ON CPAP AND REPOSITIONED TO UPRIGHT POSITIONED. LS ARE NOTED TO HAVE CRACKLES T/O.
--- NOTE | 2022-03-23 14:52 | NUR ---
Spoke with Dr Chu prior to Pt visit and discussed case. Pt and family may benefit from goals of care discussion. 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 Pt resting in bed wearing BIPAP. Pt A&OX3. Pt A&O to person, family, place, and reson for hospital stay. Pt not able to verbalize appropriate year. Engaged in therapeutic conversation regarding goals of care. Discussed options including maintaining current plan of care and the option for comfort care. Educated on comfort care philosophy with V/U made by Pt. Primary RN Ashlyn into room to place Pt on NC. Confirmed with Pt wishes with Pt reporting wishes are comfort care. Called and spoke with Pt's sister Margarita. Provided update and discussed Pt's wishes. Educated on comfort care philosophy. Facilitated video call with Pt's phone to Pt's sisters. Family talks with Pt and at times are tearful. Family appears to be in agreement with Pt's decision. Family agreeable to impliment comfort care and sisters will attempt to fly in before Pt passes away. Placed comfort care order, comfort care order set, D/C maintenance medications per V/O from Dr Chu. PPS 20% ADLs 6/6 Palliative Care will remain available.
--- NOTE | 2022-03-23 18:42 | NUR ---
PT WAS PLACED ON TO COMFORT CARE, THIS RN WAS THERE TO CONFIRM PT'S WISHES TO GO TO COMFORT CARE WITH PALLIATIVE CARE RN KD. PT REMAINS WITH CPAP IN PLACE WHICH SHE IS TOLERATING VERY WELL. SHE IS MEDICATED FOR COMFORT REGULARLY AND REPOSITIONED. VSS. FAMILY IS ARRIVING TO BE AT THE BEDSIDE. COMFORT CART IN THE ROOM
--- NOTE | 2022-03-24 05:45 | NUR ---
SHIFT SUMMARY: PT REMAINS ON CPAP, DESATS QUICKLY WITH ANY ACTIVITY. PT OPENS EYES TO VERBAL STIMULI BUT QUICKLY FALLS BACK ASLEEP. FAMILY IN THIS EVENING AND UPDATED ON PT CARE. REPOS Q2, HAD TWO INC VOIDS, NO BM. MEDICATED THROUGHOUT THE NIGHT FOR PAIN AND AIR HUNGER, SEE EMAR. BED IN LOW, ALARM ON. WILL REPORT TO ONCOMING RN.
--- NOTE | 2022-03-24 08:55 | NUR ---
Comfort care visit Stopped by to check in on Cynthia. She is currently sleeping and has the CPAP machine on. She appears to be comfortable at this time with no no verbal indicators of pain or discomfort noted at this time. Left pt undisturbed.
--- NOTE | 2022-03-24 18:17 | NUR ---
CPAP WAS TAKEN OFF THIS MORNING, MEDICATED WITH MORPHINE SATS STAYED BETWEEN 70-80% O2 ON 6L OF O2 VIA NASAL CANNULA. FAMILY REQUESTED TO KEEP O2 CANNULA ON UNTIL THE REST OF THE FAMILY MEMBER COMES DOWN [place] THE TO START TITRATING O2 UNTIL ROOM AIR. PT HAS TRANSITIONED MOSTLY NON VERBAL AT THIS TIME WILL OPEN EYES TO STIMULATION, SHALLOW BREATHING. PT HAS BEEN REPOSITIONED FOR COMFORT. WILL REPORT TO ONCOMING SHIFT
--- NOTE | 2022-03-24 21:09 | NUR ---
FINAL DISCHARGE: PT AGONAL BREATHING AT BEGINNING OF SHIFT. MEDICATED PER EMAR. PT @2056 W/FAMILY AT BEDSIDE. NOTIFIED.
== END 2022-03-24 21:40 | DRG 871 ==
LOC: ER 16:51 → ERHOLD 22:15 → PCU 23:11
PROVIDERS: Internal Medicine; Student in an Organized Health Care Education/Training Program; ADMIT Family Medicine
DX: A41.9 Sepsis, unspecified organism (principal); J18.9 Pneumonia, unspecified organism; J96.01 Acute respiratory failure with hypoxia; C91.10 Chronic lymphocytic leukemia of B-cell type not having achieved remission; E87.1 Hypo-osmolality and hyponatremia; N17.9 Acute kidney failure, unspecified; E46 Unspecified protein-calorie malnutrition; Z66 Do not resuscitate; Z51.5 Encounter for palliative care; Z20.822 Contact with and (suspected) exposure to COVID-19; R65.20 Severe sepsis without septic shock; I12.9 Hypertensive chronic kidney disease with stage 1 through stage 4 chronic kidney disease, or unspecified chronic kidney disease; N18.30 Chronic kidney disease, stage 3 unspecified; D69.59 Other secondary thrombocytopenia; D63.0 Anemia in neoplastic disease; E86.1 Hypovolemia; B96.20 Unspecified Escherichia coli [E. coli] as the cause of diseases classified elsewhere; Z68.23 Body mass index [BMI] 23.0-23.9, adult; Z87.891 Personal history of nicotine dependence; Z88.0 Allergy status to penicillin; Z98.890 Other specified postprocedural states; Z79.899 Other long term (current) drug therapy; Z86.16 Personal history of COVID-19; Z28.310 Unvaccinated for COVID-19; T37.5X6A Underdosing of antiviral drugs, initial encounter; T45.1X6A Underdosing of antineoplastic and immunosuppressive drugs, initial encounter; Z91.14 Patient's other noncompliance with medication regimen
CPT/HCPCS: 0241U; 36415; 71045; 80053; 81001; 82803; 83605; 83735; 83880; 84145; 85025; 87040; 87077; 87086; 87186; 93005; 93010; 94640; 94660; 94664; 94760; 94762; 96365; 96366; 96368; 96375; 99285-25; A9270; J0456; J0696; J1100; J1630; J2270; J7030; J7050